=== PATIENT | male | born 1940 | race Caucasian/White ===

== ENCOUNTER 2018-11-28 08:47 | Emergency (ER) | payer MEDICARE, OTHER ==
[~2018-11-28] VITALS: Ht 175.3 cm; Wt 88.9 kg
[2018-11-28 08:50] VITALS: BP 143/82
--- NOTE | 2018-11-28 09:21 | PHYS DOC ---
Past Medical History Past Medical History: A-Fib, Diabetes-Type II, Hypertension, Other Additional Past Medical Histor: DYPHAGIA, Past Surgical History: Other Additional Past Surgical Histo: G-TUBE Alcohol Use: None Drug Use: None Adult General Chief Complaint Chief Complaint: GI PROBLEM HPI HPI Patient is a 78 year old male resident of [facility] with PEG tube in place brought in by EMS because PEG tube came out. Patient states he turned at his bed about an hour prior to arrival to ER and his PEG tube came out. Patient denies abdominal pain, nausea and vomiting, bleeding at the site of tube. Patient had PEG tube placement more than year and half ago because of frequent aspiration. Review of Systems Review of Systems Constitutional: Denies fever or chills [] Eyes: Denies change in visual acuity, redness, or eye pain [] HENT: Denies nasal congestion or sore throat [] Respiratory: Denies cough or shortness of breath [] Cardiovascular: No additional information not addressed in HPI [] GI: Denies abdominal pain, nausea, vomiting, bloody stools or diarrhea [] : Denies dysuria or hematuria [] Musculoskeletal: Denies back pain or joint pain [] Integument: Denies rash or skin lesions [] Neurologic: Denies headache, focal weakness or sensory changes [] Endocrine: Denies polyuria or polydipsia [] All other systems were reviewed and found to be within normal limits, except as documented in this note. Allergies Allergies Allergies Coded Allergies Type Severity Reaction Last Updated Verified simvastatin Allergy Intermediate 08/02/16 Yes Physical Exam Physical Exam Constitutional: Well developed, well nourished, no acute distress, non-toxic appearance. [] HENT: Normocephalic, atraumatic. Eyes: PERRLA, EOMI, conjunctiva normal, no discharge. [] Neck: Normal range of motion, no tenderness, supple, no stridor. [] Cardiovascular:Heart rate regular rhythm, no murmur [] Lungs & Thorax: Bilateral breath sounds clear to auscultation [] Abdomen: Bowel sounds normal, soft, no tenderness, no masses, no pulsatile masses, open orifice of at the site of PEG tube without active bleeding or any discharge. [] Skin: Warm, dry, no erythema, no rash. [] Back: No tenderness, no CVA tenderness. [] Extremities: No tenderness, no cyanosis, no clubbing, ROM intact, no edema. [] Neurologic: Alert and oriented x3 Current Patient Data Vital Signs Vital Signs Date Time Temp Pulse Resp B/P (MAP) Pulse Ox O2 Delivery O2 Flow Rate FiO2 11/28/18 08:50 97.8 88 20 143/82 (102) 97 Room Air 97.8 Lab Values Laboratory Tests Test 11/28/18 09:31 Glucose (Fingerstick) 95 mg/dL (70-99) EKG EKG [] Radiology/Procedures Radiology/Procedures [] Course & Med Decision Making Course & Med Decision Making Evaluation of patient in ER showed 78-year-old male patient was in because of dislodged PEG tube. PICU was placed with 18 [place] tube without any problem. Placement was confirmed with aspiration of gastric contents and easy flushing. Dragon Disclaimer Dragon Disclaimer This electronic medical record was generated, in whole or in part, using a voice recognition dictation system. Departure Departure Impression: Primary Impression: PEG (percutaneous endoscopic gastrostomy) adjustment/replacement/removal Disposition: HOME, SELF-CARE (To halfway at 0920) Condition: IMPROVED Referrals: UNKNOWN PCP NAME (PCP) Patient Instructions: Care of a Feeding Tube Site, PEG, Home Care, [id number] , Tube Feeding Considerations Additional Instructions: Follow-up with your primary care physician in 3-5 days Return to ER if not getting better JOHN CARDOSO MD Nov 28, 2018 09:21
== END 2018-11-28 09:38 | disposition home or self-care (01) ==
LOC: ER 08:47
DX: Z43.1 Encounter for attention to gastrostomy (principal); E11.9 Type 2 diabetes mellitus without complications; I10 Essential (primary) hypertension; I48.91 Unspecified atrial fibrillation; Z88.8 Allergy status to other drugs, medicaments and biological substances
CPT/HCPCS: 43760; 43762; 82962; 99284-25